=== PATIENT | male | born 1950 | race Caucasian/White ===

== ENCOUNTER 2024-12-16 12:49 | Emergency (ER) | payer MEDICARE, OTHER ==
[2024-12-16 13:44] LABS: BASOPHILS PERCENT AUTO 0.6 % (0.3-3.8); EOSINOPHILS PERCENT AUTO 0.8 % (0.1-6.8); HEMATOCRIT 28.1 % (38.3-50.1); HEMOGLOBIN 9.3 g/dL (12.9-17.7); LYMPHOCYTES ABSOLUTE AUTO 0.7 x10-3/uL (0.5-4.5); LYMPHOCYTES PERCENT AUTO 13.4 % (15.8-45.3); MEAN CORPUSCULAR HEMOGLOBIN 28.1 pg (27.0-33.3); MEAN CORPUSCULAR HGB CONC 33.1 g/dL (28.7-35.3); MEAN CORPUSCULAR VOLUME 84.7 fL (80.8-98.7); MEAN PLATELET VOLUME 10.7 fL (6.7-11.0); MONOCYTES ABSOLUTE AUTO 0.5 x10-3/uL (0.0-1.2); NEUTROPHILS ABSOLUTE AUTO 4.1 x10-3/uL (1.7-6.9); NEUTROPHILS PERCENT AUTO 75.2 % (40.3-71.8); PLATELET COUNT,PLT 159 x10(3)uL (117-477); RED CELL DISTRIBUTION WIDTH 16.3 % (12.4-15.0); WHITE BLOOD CELL COUNT,WBC 5.5 x10-3/uL (3.2-10.1)
[2024-12-16 13:53] LABS: RED BLOOD CELL COUNT 3.32 x10(6)uL (3.90-5.90)
[2024-12-16 13:55] LABS: LACTIC ACID 1.5 mmol/L (0.4-2.0)
[2024-12-16 13:59] LABS: A/G RATIO 0.9; ALBUMIN 3.3 g/dL (3.2-4.6); ALKALINE PHOSPHATASE 64 IU/L (56-112); BILIRUBIN TOTAL 1.1 mg/dL (0.1-1.3); BLOOD UREA NITROGEN,BUN 46 mg/dL (7-18); BUN/CREATININE RATIO 14.4 (9-20); CALCIUM 9.1 mg/dL (8.6-10.2); CARBON DIOXIDE,CO2 31 mmol/L (21-32); CHLORIDE,CL 104 mmol/L (100-110); ESTIMATED GFR 20 mL/min (>60); GLUCOSE RANDOM 177 mg/dL (80-116); POTASSIUM,K 3.5 mmol/L (3.5-5.3); PROTEIN TOTAL,TP 6.9 g/dL (6.0-8.0); SODIUM,NA 143 mmol/L (135-145)
[2024-12-16 14:06] LABS: ALANINE AMINOTRANSFERASE,ALT 696 U/L (12-36); CREATININE 3.2 mg/dL (0.70-1.30)
[2024-12-16 15:21] LABS: ASPARTATE AMNIOTRANSFERASE,AST 1099 IU/L (5-25)
[2024-12-16 15:47] LABS: BILIRUBIN,URINE NEGATIVE (NEGATIVE); GLUCOSE,URINE NORMAL (NORMAL); KETONES,URINE NEGATIVE (NEGATIVE); LEUKOCYTE ESTERASE,URINE NEGATIVE (NEGATIVE); NITRITE,URINE NEGATIVE (NEGATIVE); OCCULT BLOOD,URINE NEGATIVE (NEGATIVE); PROTEIN,URINE 30 mg/dL (NEGATIVE); UROBILINOGEN,URINE 1 mg/dL (NEGATIVE)
[2024-12-16 15:48] LABS: APPEARANCE,URINE CLEAR (CLEAR); COLOR,URINE YELLOW (YELLOW)
[2024-12-16 15:49] LABS: BACTERIA,URINE OCCASIONAL (NS); COARSE GRANULAR CASTS,URINE OCCASIONAL (NS); RBC,URINE 0-5 (0-5); SQUAMOUS EPITHELIAL CELLS,UR OCCASIONAL (NS,R,O); WBC,URINE 0-5 (0-5)
== END 2024-12-16 19:45 ==
LOC: FB.ED 12:49
DX: J18.9 Pneumonia, unspecified organism (principal); D64.9 Anemia, unspecified; I50.43 Acute on chronic combined systolic (congestive) and diastolic (congestive) heart failure; N18.4 Chronic kidney disease, stage 4 (severe); G47.30 Sleep apnea, unspecified; Z88.6 Allergy status to analgesic agent
CPT/HCPCS: 36415; 71046; 80053; 81001; 83605; 83880; 85025; 86140; 99285

== ENCOUNTER 2025-01-13 12:49 | Emergency (ER) | payer MEDICARE, OTHER ==
[2025-01-13 13:15] LABS: EOSINOPHILS ABSOLUTE AUTO 0.1 x10-3/uL (0.0-0.6); MEAN PLATELET VOLUME 9.9 fL (6.7-11.0)
[2025-01-13 13:17] LABS: BASOPHILS PERCENT AUTO 0.5 % (0.3-3.8); EOSINOPHILS PERCENT AUTO 1.8 % (0.1-6.8); HEMATOCRIT 31.3 % (38.3-50.1); HEMOGLOBIN 10.2 g/dL (12.9-17.7); LYMPHOCYTES ABSOLUTE AUTO 0.6 x10-3/uL (0.5-4.5); LYMPHOCYTES PERCENT AUTO 8.3 % (15.8-45.3); MEAN CORPUSCULAR HEMOGLOBIN 26.8 pg (27.0-33.3); MEAN CORPUSCULAR HGB CONC 32.7 g/dL (28.7-35.3); MONOCYTES ABSOLUTE AUTO 0.7 x10-3/uL (0.0-1.2); MONOCYTES PERCENT AUTO 9.1 % (5.5-15.2); NEUTROPHILS ABSOLUTE AUTO 6.1 x10-3/uL (1.7-6.9); NEUTROPHILS PERCENT AUTO 80.3 % (40.3-71.8); PLATELET COUNT,PLT 171 x10(3)uL (117-477); RED BLOOD CELL COUNT 3.82 x10(6)uL (3.90-5.90); RED CELL DISTRIBUTION WIDTH 16.4 % (12.4-15.0); WHITE BLOOD CELL COUNT,WBC 7.6 x10-3/uL (3.2-10.1)
[2025-01-13 13:38] LABS: A/G RATIO 0.7; ALANINE AMINOTRANSFERASE,ALT 19 U/L (12-36); ALKALINE PHOSPHATASE 59 IU/L (56-112); ASPARTATE AMNIOTRANSFERASE,AST 20 IU/L (5-25); BILIRUBIN TOTAL 0.7 mg/dL (0.1-1.3); BLOOD UREA NITROGEN,BUN 49 mg/dL (7-18); BUN/CREATININE RATIO 15.3 (9-20); CALCIUM 9.2 mg/dL (8.6-10.2); CARBON DIOXIDE,CO2 30 mmol/L (21-32); CHLORIDE,CL 107 mmol/L (100-110); ESTIMATED GFR 20 mL/min (>60); GLUCOSE RANDOM 84 mg/dL (80-116); POTASSIUM,K 3.3 mmol/L (3.5-5.3); PROTEIN TOTAL,TP 7.1 g/dL (6.0-8.0); SODIUM,NA 146 mmol/L (135-145)
[2025-01-13 13:44] LABS: C-REACTIVE PROTEIN 13.46 mg/dL (<0.50)
[2025-01-13 13:46] LABS: CREATININE 3.2 mg/dL (0.70-1.30)
[2025-01-13] MEDS: Potassium Chloride 20 MEQ Tab.ER PO ONE (16:02)
[2025-01-13] MEDS: cefTRIAXone 2 GM Vial IVPUSH ONE (16:03)
[2025-01-13] MEDS: Furosemide 40 MG/4 ML VIAL IVPUSH ONE (16:05)
[2025-01-13] MEDS: Azithromycin 500 MG in Sodium Chloride 0.9% 250 ML IV ONE (16:11)
== END 2025-01-13 17:05 ==
LOC: FB.ED 12:49
DX: J18.9 Pneumonia, unspecified organism (principal); I50.43 Acute on chronic combined systolic (congestive) and diastolic (congestive) heart failure; N18.4 Chronic kidney disease, stage 4 (severe); E11.22 Type 2 diabetes mellitus with diabetic chronic kidney disease; Z88.8 Allergy status to other drugs, medicaments and biological substances
CPT/HCPCS: 36415; 71045; 80053; 83605; 83880; 84484; 85025; 86140; 93005; 96365; 96375; 99285-25; A9270-GY; J0456; J0696; J1940; J7050

== ENCOUNTER 2025-01-17 12:48 | Inpatient (IN) | payer MEDICARE, OTHER ==
[2025-01-17] MEDS ORDERED: Glucagon,Human Recombinant 1 MG Vial IM PRN (14:40)
[2025-01-17] MEDS ORDERED: 50% Dextrose in Water 50 ML Syringe IVPUSH PRN (14:40)
[2025-01-17] MEDS: Torsemide 20 MG Tab PO SCH ×2 (15:40→19:27)
[2025-01-17] MEDS ORDERED: Non-Formulary Medication 1 Each (Insulin Aspart [Novolog Flexpen] 100 UNIT/ML Insuln.Pen) SUBCUT SCH (18:00)
[2025-01-17] MEDS: Insulin Lispro 100 Unit/ML 3 ML KwikPen SUBCUT SCH (18:51)
[2025-01-17] MEDS: Isosorbide Dinitrate 10 MG Tab PO SCH (18:56)
[2025-01-17] MEDS: Allopurinol 300 MG Tab PO SCH (21:10)
[2025-01-17] MEDS: Apixaban 5 MG Tab PO SCH (21:10)
[2025-01-17] MEDS: atorvaSTATin 40 MG Tab PO SCH (21:10)
[2025-01-17] MEDS: Calcitriol 0.25 MCG Cap PO SCH (21:11)
[2025-01-17] MEDS: Fenofibrate Nanocrystallized 145 MG Tab PO SCH (21:11)
[2025-01-17] MEDS: Venlafaxine 150 MG Cap.ER PO SCH (21:11)
[2025-01-17] MEDS: cloNIDine 0.1 MG Tab PO SCH (21:12)
[2025-01-17] MEDS: traZODone 50 MG Tab PO SCH (21:12)
[2025-01-17] MEDS: Tamsulosin 0.4 MG Cap.ER PO SCH (21:12)
[2025-01-17] MEDS: Polyethylene Glycol 3350 Powder 17 GM Packet PO SCH (21:13)
[2025-01-17] MEDS: Triamcinolone Acetonide 0.1% Crm 15 GM Tube TOP SCH (21:13)
[2025-01-17] MEDS: Pregabalin 25 MG Cap PO SCH (21:17)
[2025-01-18] MEDS: Pantoprazole 40 MG Tab.CR PO SCH (05:27)
[2025-01-18] MEDS: Aspirin 81 MG Tab.EC PO SCH (08:06)
[2025-01-18] MEDS: Multivitamins with Iron/Calcium/Folic Acid/Minerals Tab PO SCH (08:06)
[2025-01-18] MEDS: Sennosides/Docusate Sodium 50-8.6 MG Tab PO SCH (08:07)
[2025-01-18] MEDS: Metoprolol Succinate 50 MG Tab.ER PO SCH (08:07)
[2025-01-19] MEDS: Acetaminophen 325 MG Tab PO PRN (20:48)
[2025-01-20] MEDS: Metoprolol Tartrate 25 MG Tab PO STA (10:30)
[2025-01-20 20:54] VITALS: BP 134/88
[2025-01-20] MEDS: Melatonin 3 MG Tab PO PRN (21:56)
[2025-01-20] MEDS: LORazepam 1 MG Tab PO ONE (23:25)
[2025-01-21] MEDS: hydrOXYzine Pamoate 25 MG Cap PO ONE (01:06)
[2025-01-21 11:33] LABS: BASE EXCESS VENOUS,POC 5 mmol/L (-2 - 3+); PCO2 VENOUS,POC 56 mmHg (41-51); PH VENOUS,POC 7.36 pH Units (7.32-7.43)
[2025-01-21 11:35] LABS: HEMATOCRIT 33.8 % (38.3-50.1); HEMOGLOBIN 10.9 g/dL (12.9-17.7); MEAN CORPUSCULAR HEMOGLOBIN 27.4 pg (27.0-33.3); MEAN CORPUSCULAR HGB CONC 32.2 g/dL (28.7-35.3); MEAN CORPUSCULAR VOLUME 84.8 fL (80.8-98.7); MEAN PLATELET VOLUME 10.8 fL (6.7-11.0); PLATELET COUNT,PLT 208 x10(3)uL (117-477); RED BLOOD CELL COUNT 3.98 x10(6)uL (3.90-5.90); RED CELL DISTRIBUTION WIDTH 16.3 % (12.4-15.0)
[2025-01-21 12:03] LABS: BAND PERCENT MAN 4 % (0-6); LYMPHOCYTES PERCENT MAN 3 % (13-37); MONOCYTES PERCENT MAN 5 % (4-12); SEG NEUTROPHILS PERCENT MAN 88 % (46-82)
[2025-01-21 14:01] VITALS: PULSE 122
[2025-01-21 17:35] LABS: BLOOD UREA NITROGEN,BUN 57 mg/dL (7-18); CARBON DIOXIDE,CO2 29 mmol/L (21-32); CHLORIDE,CL 108 mmol/L (100-110); GLUCOSE RANDOM 147 mg/dL (80-116); POTASSIUM,K 4.8 mmol/L (3.5-5.3); SODIUM,NA 146 mmol/L (135-145)
[2025-01-21 17:36] LABS: A/G RATIO 0.8; ALBUMIN 3.1 g/dL (3.2-4.6); ALKALINE PHOSPHATASE 67 IU/L (56-112); BILIRUBIN TOTAL 2.3 mg/dL (0.1-1.3); BUN/CREATININE RATIO 16.3 (9-20); CALCIUM 9.4 mg/dL (8.6-10.2); CREATININE 3.5 mg/dL (0.70-1.30); EST CRCL DRUG DOSING (CG) 19.72 mL/min; ESTIMATED GFR 18 mL/min (>60); PROTEIN TOTAL,TP 6.8 g/dL (6.0-8.0)
[2025-01-21 17:37] LABS: ALANINE AMINOTRANSFERASE,ALT 2572 U/L (12-36); ASPARTATE AMNIOTRANSFERASE,AST 5471 IU/L (5-25)
== END 2025-01-21 13:20 | DRG 948 ==
LOC: FB.MS 12:48
PROVIDERS: ADMIT Internal Medicine; ATTEND Internal Medicine
DX: R53.81 Other malaise (principal); N17.9 Acute kidney failure, unspecified; I48.92 Unspecified atrial flutter; N18.4 Chronic kidney disease, stage 4 (severe); I42.9 Cardiomyopathy, unspecified; I13.0 Hypertensive heart and chronic kidney disease with heart failure and stage 1 through stage 4 chronic kidney disease, or unspecified chronic kidney disease; F05 Delirium due to known physiological condition; I48.20 Chronic atrial fibrillation, unspecified; J96.12 Chronic respiratory failure with hypercapnia; J96.11 Chronic respiratory failure with hypoxia; I50.42 Chronic combined systolic (congestive) and diastolic (congestive) heart failure; G93.40 Encephalopathy, unspecified; N40.0 Benign prostatic hyperplasia without lower urinary tract symptoms; E11.22 Type 2 diabetes mellitus with diabetic chronic kidney disease; F15.90 Other stimulant use, unspecified, uncomplicated; G89.29 Other chronic pain; M54.9 Dorsalgia, unspecified; I48.0 Paroxysmal atrial fibrillation; I27.20 Pulmonary hypertension, unspecified; D63.1 Anemia in chronic kidney disease; G47.33 Obstructive sleep apnea (adult) (pediatric); E78.5 Hyperlipidemia, unspecified; M10.9 Gout, unspecified; E11.40 Type 2 diabetes mellitus with diabetic neuropathy, unspecified; K21.9 Gastro-esophageal reflux disease without esophagitis; F32.9 Major depressive disorder, single episode, unspecified; R79.89 Other specified abnormal findings of blood chemistry; G47.00 Insomnia, unspecified; E66.9 Obesity, unspecified; Z68.31 Body mass index [BMI] 31.0-31.9, adult; Z79.01 Long term (current) use of anticoagulants; Z91.199 Patient's noncompliance with other medical treatment and regimen due to unspecified reason; Z79.82 Long term (current) use of aspirin; Z79.899 Other long term (current) drug therapy; Z79.02 Long term (current) use of antithrombotics/antiplatelets; Z79.1 Long term (current) use of non-steroidal anti-inflammatories (NSAID); Z87.01 Personal history of pneumonia (recurrent)
CPT/HCPCS: 36415; 70450; 80053; 82947; 84484; 85025; 93005; 97161-GP; 97165-GO; 99305; 99309; 99315; A9270-GY; J1815